=== PATIENT | female | born 1960 | race Caucasian/White ===

== ENCOUNTER → 2016-08-11 | Outpatient (CLI) | payer OTHER ==
[2016-08-11 16:23] LABS: CH 30.1; CHCM 32.1; HCT 39.9 % (34.0-46.0); HDW 2.09; HGB 12.9 gm/dL (11.4-16.0); MCH 30.5 pg (25.0-35.0); MCHC 32.4 g/dL (31.0-37.0); MCV 94.3 fL (80.0-100.0); Mean Platelet Volume 6.5; RBC 4.23 m/uL (3.80-5.40); RDW 12.9 % (11.5-15.5); WBC 7.2 k/uL (3.8-10.6)
[2016-08-11 16:36] LABS: Anion Gap 11 mmol/L; Blood Urea Nitrogen 17 mg/dL (7-17); Carbon Dioxide 27 mmol/L (22-30); Chloride 104 mmol/L (98-107); Non-African American GFR(MDRD) >60 (>60 ml/min/1.73 sqM); Potassium 4.5 mmol/L (3.5-5.1); Sodium 142 mmol/L (137-145)
== END | disposition home or self-care (01) ==
LOC: LABPAT 16:01
PROVIDERS: ATTEND Internal Medicine Interventional Cardiology
DX: Z01.812 Encounter for preprocedural laboratory examination (principal); R07.9 Chest pain, unspecified
CPT/HCPCS: 80051; 82565; 84520; 85027

== ENCOUNTER 2016-08-15 06:29 | Day surgery (SDC) | payer OTHER ==
[2016-08-11 10:56] VITALS: BMI 35.4
[~2016-08-15 06:29] MED LIST: ALPRAZolam 0.25 MG TAB PO PRN; ASPIRIN 325 MG TAB PO ONE; SODIUM CHLORIDE 0.9% 1,000 ML in EMPTY BAG 1 BAG IV ONE
[2016-08-15 07:21] VITALS: RESP 20; TEMP 98.5
[2016-08-15] MEDS ORDERED: fentaNYL (PF) 50 MCG/ML 2 ML AMP IV ONE (07:50)
[2016-08-15] MEDS ORDERED: diphenhydrAMINE 50 MG/ML 1 ML VIAL IVP ONE (07:50)
[2016-08-15] MEDS ORDERED: LIDOCAINE 2% INJ 20 MG/ML SQ ONE (07:52)
[2016-08-15] MEDS ORDERED: VERAPAMIL SYRINGE (5 MG/10 ML) INTRAARTER ONE (07:54)
[2016-08-15] MEDS ORDERED: MIDAZOLAM 2 MG/2 ML VIAL IV ONE (08:00)
[2016-08-15] MEDS ORDERED: IOHEXOL 350 MG/ML 100 ML BOTTLE INJ ONE (08:08)
[2016-08-15] MEDS ORDERED: RX INFO: IV CONTRAST WAS GIVEN 1 EACH MISC MISCELLANE PRN (08:22)
[2016-08-15] MEDS ORDERED: SODIUM CHLORIDE 0.9% 1,000 ML IV SCH (08:30)
[2016-08-15] MEDS ORDERED: CHOLECALCIFEROL 1,000 UNIT TAB PO SCH (12:00)
[2016-08-15 13:22] VITALS: PULSE 72
[2016-08-15 13:28] VITALS: BP 125/66
--- NOTE | 2016-08-15 19:48 | CC ---
DATE OF SERVICE: 08/15/2016 INDICATIONS: Mrs. Oliveira is a 55-year-old female with known history of chronic tobacco use, hyperlipidemia, family history of coronary artery disease, who has been complaining of episodes of chest discomfort. She underwent stress test which revealed partial reversible and anterolateral wall defect. In view of that, recommendation made regarding cardiac catheterization. The procedure as well as the risks and complications were discussed with the patient who is in full understanding and agreement. PROCEDURE: Patient was brought to the laboratory specialist in a fasting semi-sedated state, after receiving fentanyl and Benadryl. She was draped and prepped in conventional fashion using sharp using Xylocaine anesthesia and Seldinger technique. A 6 Slovak sheath was introduced in the right radial artery. Selective right and left coronary angiography was performed using 5 Slovak 3.5 bend Preeti catheter. Multiple views of the coronary arteries including hemiaxial views obtained. Following that, a 5 Slovak tight pigtail catheter was introduced in the left ventricle and 30 degree HARTMAN view of the left ventricle was obtained. Following that, catheter and sheath were removed. Hemostasis was obtained with deployment of TR band. There were no immediate complications. Patient was returned to her room in stable condition. Of note, the patient received 5 units of intravenous heparin as well as intra-arterial verapamil. FINDINGS: LEFT MAIN: This is a large-size vessel, bifurcating into left circumflex and left anterior descending artery. Left main coronary artery is without any obstructive coronary artery disease. LEFT ANTERIOR DESCENDING: This is a large-size vessel, reaching toward the apex with a wrap around the apex segment, giving rise to a moderate size diagonal branch of the mid segment. At the take-off of the diagonal branch the left anterior descending had a 20 to 30% plaque. The rest of the vessel has no high-grade stenosis. LEFT CIRCUMFLEX: This is a large nondominant vessel, giving rise to a large obtuse marginal branch. The proximal left circumflex has a plaque of 20%. RIGHT CORONARY ARTERY: This is a large dominant vessel, bifurcating distally into PDA, posterolateral segment and branches. The right coronary artery and its branches have no evidence of obstructive coronary artery disease. LEFT VENTRICULOGRAM: Performed in 30 degrees HARTMAN view and revealed normal left ventricular size and systolic function. Ejection fraction was 60%. There was no significant mitral regurgitation. HEMODYNAMICS: There was no gradient across the aortic valve. The left ventricle end-diastolic pressure was 6 to 10 mmHg. CONCLUSION: 1. 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 2. Normal left ventricular size and systolic function. RECOMMENDATIONS: In view of findings of anatomy, recommend continuing medical therapy with aggressive coronary risk modifications that have been initiated. Those findings and recommendations were discussed with the patient and her family who are in full understanding and agreement.
--- NOTE | 2016-08-15 19:54 | LTR ---
August 15, 2016 Georgie Larsen PA-C RE: Laura Oliveira Dear Ms. Larsen: I had the opportunity to perform cardiac catheterization on Ms. Oliveira at [facility] on August 15. A full copy of the procedure note will be forwarded to you. In brief, she was found to have mild obstructive disease involving the LAD the left circumflex with preserved left ventricular size and systolic function. Based on those findings, I have recommended to continue medical therapy with aggressive coronary risk modifications you have initiated including smoking cessation. Depending on her progress, further recommendation will be made. Thank you again for allowing me the opportunity to participate in her care. Please feel to call for any questions. Sincerely, ANDIE MAST MD
[2016-08-16] MEDS ORDERED: ASPIRIN 81 MG CHEW PO SCH (09:00)
[2016-08-16] MEDS ORDERED: SERTRALINE 50 MG TAB PO SCH (09:00)
[2016-08-16] MEDS ORDERED: ATORVASTATIN 40 MG TAB PO SCH (09:00)
== END 2016-08-15 13:10 | disposition home or self-care (01) ==
LOC: CATHCVL 06:29
PROVIDERS: ATTEND Internal Medicine Interventional Cardiology
DX: I25.10 Atherosclerotic heart disease of native coronary artery without angina pectoris (principal); R94.39 Abnormal result of other cardiovascular function study; R07.89 Other chest pain; E78.2 Mixed hyperlipidemia; E78.00 Pure hypercholesterolemia, unspecified; F17.210 Nicotine dependence, cigarettes, uncomplicated; Z82.49 Family history of ischemic heart disease and other diseases of the circulatory system; Z79.82 Long term (current) use of aspirin; Z79.899 Other long term (current) drug therapy
CPT/HCPCS: 93458; C1894; C1769; J2001; J2250; J1200; Q9967; J3010; J1644

== ENCOUNTER → 2023-02-20 | Outpatient (CLI) | payer BC ==
--- NOTE | 2023-02-20 15:40 | US ---
EXAMINATION TYPE: US venous doppler duplex LE RT DATE OF EXAM: 02/20/2023 3:16 PM COMPARISON: NONE CLINICAL INDICATION: Female, 62 years old with history of I82.819; pain SIDE PERFORMED: Right TECHNIQUE: The lower extremity deep venous system is examined utilizing real time linear array sonog marilyn with graded compression, doppler sonography and color-flow sonography. VESSELS IMAGED: Common Femoral Vein Deep Femoral Vein Greater Saphenous Vein * Femoral Vein Popliteal Vein Small Saphenous Vein * Proximal Calf Veins (* superficial vessels) Right Leg: Negative for DVT IMPRESSION: Grayscale, color doppler, spectral doppler imaging performed of the deep veins of the lo wer extremities. There is normal flow, compressibility, vascular waveforms.
== END | disposition home or self-care (01) ==
LOC: RADUSWWP 14:59
PROVIDERS: ATTEND Family Medicine
DX: I82.811 Embolism and thrombosis of superficial veins of right lower extremity (principal)

== ENCOUNTER → 2023-05-30 | Outpatient (CLI) | payer BC ==
--- NOTE | 2023-05-31 08:53 | MM ---
Reason for Exam: Screening (asymptomatic). Last mammogram was performed 10 year(s) and 2 month(s) ago. Patient History: Menarche at age 15. First Full-Term at age 23. Hormonal Contraceptives for 16 years from age 19 until age 40. Maternal aunt had breast cancer, age 47. Mother had breast cancer, age 45. Risk Values: Abby 5 year model risk: 2.6%. NCI Lifetime model risk: 12.1%. Prior Study Comparison: 06/07/2007 Bilateral Diagnostic Mammogram, [facility]. 11/22/2010 Bilateral Screening Mammogram, [facility]. 03/11/2013 Bilateral Screening Mammogram, [facility]. Tissue Density: The breast tissue is heterogeneously dense. This may lower the sensitivity of mammography. Findings: Analyzed By CAD. Left-sided retroareolar nodule. Additional views recommended. No right-sided masses seen. No suspicious calcifications. Overall Assessment: Incomplete: need additional imaging evaluation, BI-RAD 0 Management: Diagnostic Mammogram of the left breast. . Patient should continue monthly self-breast exams. A clinical breast exam by your physician is recommended on an annual basis. This exam should not preclude additional follow-up of suspicious palpable abnormalities. Note on Abby scores and lifetime risk: 1. A Abby score greater than 3% is considered moderate risk. If this is the case, consider specialist referral to assess eligibility for a risk reducing agent. 2. If overall lifetime risk for the development of breast cancer is 20% or higher, the patient may qualify for future screening with alternating mammogram and breast MRI. Electronically signed and approved by: Sebastian Rodriguez M.D. Radiologis
== END | disposition home or self-care (01) ==
LOC: RADMAMWWP 15:12
PROVIDERS: ATTEND Family Medicine
DX: Z12.31 Encounter for screening mammogram for malignant neoplasm of breast (principal); Z80.3 Family history of malignant neoplasm of breast
CPT/HCPCS: 77063; 77067

== ENCOUNTER → 2023-06-02 | Outpatient (CLI) | payer BC ==
--- NOTE | 2023-06-02 13:59 | MM ---
Reason for Exam: Additional evaluation requested from abnormal screening. Last screening mammogram was performed less than 1 month ago. Patient History: Menarche at age 15. First Full-Term at age 23. Hormonal Contraceptives for 16 years from age 19 until age 40. Maternal aunt had breast cancer, age 47. Mother had breast cancer, age 45. Risk Values: Abby 5 year model risk: 2.6%. NCI Lifetime model risk: 12.1%. Prior Study Comparison: 11/22/2010 Bilateral Screening Mammogram, [facility]. 03/11/2013 Bilateral Screening Mammogram, [facility]. 05/30/2023 Bilateral MG 3D screening mammo w/cad, [facility]. Tissue Density: Left: The breast tissue is heterogeneously dense. This may lower the sensitivity of mammography. Findings: Analyzed By CAD. Left-sided retroareolar nodule does not persist with compression. No suspicious calcifications. Overall Assessment: Benign, BI-RAD 2 Management: Screening Mammogram of both breasts in 1 year. A clinical breast exam by your physician is recommended on an annual basis and results should be correlated with mammographic findings. This exam should not preclude additional follow-up of suspicious palpable abnormalities. Results were given to the patient verbally at the time of exam. Note on Abby scores and lifetime risk: 1. A Abby score greater than 3% is considered moderate risk. If this is the case, consider specialist referral to assess eligibility for a risk reducing agent. If overall lifetime risk for the development of breast cancer is 20% or higher, the patient may qualify for future screening with alternating mammogram and breast MRI. Electronically signed and approved by: Mir Marcial D.O.
== END | disposition home or self-care (01) ==
LOC: RADMAMWWP 13:31
PROVIDERS: ATTEND Family Medicine
DX: R92.332 Mammographic heterogeneous density, left breast (principal); Z80.3 Family history of malignant neoplasm of breast
CPT/HCPCS: 77061; 77065

== ENCOUNTER → 2024-08-09 | Outpatient (CLI) | payer BC ==
--- NOTE | 2024-08-12 07:50 | MM ---
Reason for Exam: Screening (asymptomatic). Last mammogram was performed 1 year(s) and 3 month(s) ago. Patient History: Menarche at age 15. First Full-Term at age 23. Postmenopausal. Hormonal Contraceptives for 16 years from age 19 until age 40. Maternal aunt had breast cancer, age 47. Mother had breast cancer, age 45. Risk Values: Abby 5 year model risk: 2.7%. NCI Lifetime model risk: 11.8%. Prior Study Comparison: 03/11/2013 Bilateral Screening Mammogram, [facility]. 05/30/2023 Bilateral MG 3D screening mammo w/cad, [facility]. 06/02/2023 Left MG 3D work up w/cad , [facility]. Tissue Density: The breasts are extremely dense, which lowers the sensitivity of mammography. Findings: Analyzed By CAD. Right breast: There is no suspicious group of microcalcifications or new suspicious mass. Left breast: There is no suspicious group of microcalcifications or new suspicious mass. Overall Assessment: Negative, BI-RAD 1 Management: Screening Mammogram of both breasts in [address] [facility] will attempt to contact patient to return for supplemental views and ultrasound if indicated. Patient should continue monthly self-breast exams. A clinical breast exam by your physician is recommended on an annual basis. This exam should not preclude additional follow-up of suspicious palpable abnormalities. Note on Abby scores and lifetime risk: 1. A Abby score greater than 3% is considered moderate risk. If this is the case, consider specialist referral to assess eligibility for a risk reducing agent. 2. If overall lifetime risk for the development of breast cancer is 20% or higher, the patient may qualify for future screening with alternating mammogram and breast MRI. [facility], , 08/12/2024 7:47 AM. Electronically signed and approved by: Marco A Kelly DO
== END | disposition home or self-care (01) ==
LOC: RADMAMWWP 16:14
PROVIDERS: ATTEND Family Medicine
DX: Z12.31 Encounter for screening mammogram for malignant neoplasm of breast (principal); Z78.0 Asymptomatic menopausal state; Z80.3 Family history of malignant neoplasm of breast; R92.343 Mammographic extreme density, bilateral breasts
CPT/HCPCS: 77063; 77067